=== PATIENT | female | born 1950 | race Caucasian/White ===

== ENCOUNTER 2019-10-09 08:02 | Emergency (ER) | payer MEDICARE, SELFPAY ==
[2019-10-09 07:56] VITALS: BMI 31.6
[2019-10-09 08:07] VITALS: BP 183/68; PULSE 84; RESP 22; TEMP 37; O2SAT 96
--- NOTE | 2019-10-09 08:10 | DI.RAD.S_ITS ---
PROCEDURE: XR CHEST 1V INDICATIONS: chest pain TECHNIQUE: One view of the chest was acquired. COMPARISON: [facility], CR, XR CHEST 1 VIEW, 12/15/2018, 11:28. FINDINGS: Surgical changes and devices: None. Lungs and pleura: Prominent interstitial markings are evident within the perihilar regions with associated prominent pulmonary vascular markings. No large effusion or definite pneumothorax is appreciated. There may be a rounded nodule within the right hilum, unchanged. Mediastinum: Mediastinal contours appear normal. The heart is enlarged. There is aortic atherosclerosis. Bones and chest wall: No suspicious bony lesions. Overlying soft tissues appear unremarkable. IMPRESSION: 1. Cardiomegaly with associated vascular congestion, suggesting pulmonary edema. 2. Rounded nodular structure within the right hilum may represent a vessel. However, CT of the chest is recommended with contrast to exclude a pulmonary nodule. Dictated by: Moe Sands M.D. on 10/09/2019 at 8:33 Approved by: Moe Sands M.D. on 10/09/2019 at 8:34
--- NOTE | 2019-10-09 08:13 | ED_ITS ---
HPI - Chest Pain General Chief Complaint: Chest Pain Stated Complaint: Chest pain Time Seen by Provider: 10/09/19 08:07 Source: patient and EMS Mode of arrival: EMS History of Present Illness HPI narrative: The patient is a 69-year-old female who developed chest pain this morning at 5:30 a.m.. She describes the chest discomfort as a pressure sitting on the center of her chest which did not radiate to her back neck jaw shoulder or arms. She was mildly sweaty and short of breath. She has had a chronic cough productive of a green sputum. She has had no pain on coughing. She states that she has been wheezing tremendously. She was transported from the methadone clinic. She states that in October she will be clear for 1 year of u sing IV heroin. At the present time she is not having any chest pain. When the chest pain occurred it was 5 to 7/10 in intensity. She denies a history of hepatitis, TB, HIV, pulmonary embolism, phlebitis, COPD, myocardial infarction, stroke, diabetes mellitus, pancreatitis. She has a history of congestive heart failure and hypertension. She states that she has not smoked cigarettes in 1974 and does not drink alcohol. The patient has a chronic right shoulder and upper chest pain for an old fracture for which she wears a sling in her right shoulder. She denies any recent fever chills or sweats she has a mild headache. She denies any nasal drainage sinus drainage. She has had intermittent palpitations and mild dizziness. She complains of diffuse muscle aches and backache. She has had no abdominal pain but has had diarrhea without melena hematochezia nausea or vomiting. She denies any urinary symptoms. Related Data Home Medications Medication Instructions Recorded Confirmed albuterol sulfate 1 inh INHALATION PRN PRN 10/09/19 10/09/19 budesonide-formoterol [Symbicort] 2 puff INHALATION BID 10/09/19 10/09/19 carvedilol 6.25 mg PO BID 10/09/19 10/09/19 ferrous sulfate 325 mg PO DAILY 10/09/19 10/09/19 furosemide 20 mg PO DAILY 10/09/19 10/09/19 gabapentin 600 mg PO TID 10/09/19 10/09/19 lisinopril 10/09/19 multivitamin 1 tab PO DAILY 10/09/19 10/09/19 naloxone [Narcan] INTRANASAL 10/09/19 oxycodone 5 - 10 mg PO Q4-6H PRN 10/09/19 10/09/19 pantoprazole 40 mg PO DAILY 10/09/19 10/09/19 sacubitril-valsartan [Entresto] 1 tab PO BID 10/09/19 10/09/19 Previous Rx's Medication Instructions Recorded ibuprofen 600 mg PO Q6H PRN #20 tab 10/09/19 nitroglycerin 0.3 mg SL Q5M PRN #20 tab 10/09/19 Allergies Allergy/AdvReac Type Severity Reaction Status Date / Time acetaminophen [From Vicodin] Allergy Hives Verified 10/09/19 08:03 hydrocodone [From Vicodin] Allergy Hives Verified 10/09/19 08:03 methocarbamol Allergy Hives Verified 10/09/19 08:07 olanzapine Allergy Hives Verified 10/09/19 08:07 propoxyphene Allergy Hives Verified 10/09/19 08:07 aspirin AdvReac Abdominal Verified 10/09/19 08:07 Pain ibuprofen AdvReac Verified 10/09/19 08:07 morphine AdvReac Palpitation Verified 10/09/19 08:07 s Review of Systems Review of Systems ROS Unobtainable: All systems reviewed & are unremarkable except as noted in HPI and below Patient History alcohol intake frequency: 0-2 drinks per day Substance Use Type: heroin Exam Narrative Exam Narrative: PHYSICAL EXAM: CONSTITUTIONAL: Awake, Alert, Oriented, Coherent, Cooperative in NAD. Does not appear toxic or ill. Walks slowly and speaks softly. She ambulated to the bathroom with assistance without difficulty. HEAD: AT/NC EENT: PERRL, FROM of eyes, no discharge, no nystagmus No epistaxis or nasal drainage Oral mucosa is moist and pink, posterior pharynx is without erythema or exu date. NECK: Supple, no obvious JVD, Trachea is midline without stridor, no palpable LN or masses. SPINE: No gross deformity, no palpable tenderness of the cervical, thoracic, lumbar or sacral spine. No CVA tenderness. Tender left SI joint. THORAX: No deformity, retractions. Chest wall tender along the left costosternal margin but does not mimic the chest pain she was complaining of., subcutaneous air or crepitice. LUNGS: Symmetrical decreased breath sounds bilaterally.s HEART: Normal heart tones, regular rhythm and rate without murmur. ABDOMEN: Soft, non-tender, normal bowel sounds without guarding, rebound, rigidity or palpable mass EXTREMITIES: No edema, cyanosis, deformity or tenderness. SKIN: No rash, bruising, petechiae or purpura. NEURO: Awake, alert, oriented, conversive, cranial nerves II-XII are symmetrical and normal, moves all 4 extremities and is ambulatory Initial Vital Signs Initial Vital Signs: Vital Signs Temperature 98.6 F 10/09/19 08:07 Pulse Rate 84 10/09/19 08:07 Respiratory Rate 22 10/09/19 08:07 Blood Pressure 183/68 H 10/09/19 08:07 Pulse Oximetry 96 10/09/19 08:07 Course Course Course Narrative: 11:07 CHEST X-RAY REVEALS THAT THE PATIENT HAS AN ILL-DEFINED density in the right hilum that may represent a vessel or a possible pulmonary n odule/tumor. Radiology recommends a CT scan with contrast. The patient's initial troponin is less than 0.012. Her urine drug screen is positive for methadone. No other drugs are present. A repeat 2 hour troponin will be ordered on the patient. A CT with contrast of the chest has been ordered. 1313: The patient's 2nd troponin remains pending. The patient's 2nd EKG reveals a normal sinus rhythm with a ventricular rate of 65. Intervals are normal axis is normal there are no acute diagnostic ST segment changes. The patient has a Q-wave/QS wave in V1. The EKG is nondiagnostic of an injury or coronary ischemia. The results of the patient's CT scan of the chest with contrast remains pending. [address] scan shows that the nodule in the right hilar was actually a blood vessel. There is cardiomegaly with increased vascular markings consistent with mild pulmonary edema. The patient has a prominent arm dilated common bile duct status post cholecystectomy. The patient's repeat troponin was less than 0.012. The patient will be discharged home to follow-up with her [facility] physician. Orders Ordered: Discontinued Medications Sodium Chloride (Normal Saline 0.9%) 1,000 mls @ 150 mls/hr IV CONT JOVITA Last Infusion: 10/09/19 14:02 Dose: 150 mls/hr Documented by: Admin: 10/09/19 08:42 Dose: 150 mls/hr Documented by: ALAN Vital Signs Vital signs: Vital Signs - 8 hr 10/09/19 08:07 10/09/19 11:39 10/09/19 12:42 Temperature 98.6 F Pulse Rate 84 84 43 L Respiratory Rate 22 25 H 16 Blood Pressure [Right Arm] 183/68 H 168/56 H 141/68 H Pulse Oximetry 96 96 100 MDM - Chest Pain Lab Data Result diagrams: 10/09/19 07:35 10/09/19 07:35 Labs: Lab Results 10/09/19 10/09/19 10/09/19 Range/Units 07:35 07:35 08:20 WBC 7.8 (4.5-11.0) X10^3/uL RBC 3.68 L (4.0-5.2) X10^6/uL Hgb 10.2 L (12.0-16.0) g/dL Hct 31.0 L (36-46) % MCV 84.3 (80-100) fL MCH 27.7 (26-34) PG MCHC 32.9 (30-36) % RDW 15.1 H (11.6-14.8) % Plt Count 328 (150-400) X10^3/uL Neut % (Auto) 76.7 H (50-75) % Lymph % (Auto) 14.1 L (25-40) % [place] % (Auto) 5.4 (3-14) % Eos % (Auto) 3.4 (2-4) % Baso % (Auto) 0.4 (0-2) % Neut # (Auto) 6000 (8106-0118) /uL Lymph # (Auto) 1100 (4891-2638) /uL [place] # (Auto) 400 (0-900) /uL Eos # (Auto) 300 (0-450) /uL Baso # (Auto) 0 (0-100) /uL Sodium 141 (137-145) mmol/L Potassium 4.0 (3.4-5.1) mmol/L Chloride 107 (98-107) mmol/L Carbon Dioxide 27 (22-32) mmol/L BUN 11 (7-17) mg/dL Creatinine 0.80 (0.52-1.04) mg/dL Estimated GFR > 60.0 (>60) mL/min BUN/Creatinine Ratio 13.8 (6-22) Glucose 86 (80-110) mg/dL Calcium 8.8 (8.4-10.2) mg/dL Total Bilirubin 0.5 (0.2-1.3) mg/dL AST 25 (14-36) IU/L ALT 11 (<35) IU/L Alkaline Phosphatase 128 H (38-126) U/L Total Creatine Kinase 59 (30-135) U/L CK-MB (CK-2) TNP CK-MB (CK-2) Rel Index TNP Troponin I < 0.012 (0.01-0.034) ng/mL Total Protein 8.3 H (6.3-8.2) g/dL Albumin 4.0 (3.5-5.0) g/dL Globulin 4.3 H (1.7-4.1) g/dL Albumin/Globulin Ratio 0.9 L (1.0-2.8) Lipase 53 (23-300) U/L Urine Color Yellow Urine Appearance Clear Urine pH 7.0 (4.5-8.0) Ur Specific [place] 1.010 (1.000-1.035) Urine Protein Negative (Negative) Urine Glucose (UA) Negative (Negative) g/dL Urine Ketones Negative (NEGATIVE) Urine Occult Blood Trace-lysed (Negative) Urine Nitrate Negative (Negative) Urine Bilirubin Negative (NEGATIVE) Urine Urobilinogen 0.2 (0.2) E.U./dL Ur Leukocyte Esterase Negative (NEGATIVE) Urine RBC 0-1/hpf (0-5/HPF) Urine WBC 1-5/hpf (0-5/HPF) Ur Squamous Epith Cells 0-1 /hpf (0-5/HPF) Urine Bacteria Few (2-10) H (None) Ur Culture Indicated? Cult not indicated U Opiates 300ng/mL cut (Negative) Ur Oxycodone Screen (Negative) Urine Methadone Screen (Negative) Ur Barbiturates Screen (Negative) U Tricyclic Antidepress (Negative) Ur Phencyclidine Scrn (Negative) Ur Amphetamines Screen (Negative) U Methamphetamines Scrn (Negative) Ur MDMA Scrn (Ecstasy) (Negative) U Benzodiazepines Scrn (Negative) Urine Cocaine Screen (Negative) U Marijuana (THC) Screen (Negative) 10/09/19 10/09/19 Range/Units 08:20 12:48 WBC (4.5-11.0) X10^3/uL RBC (4.0-5.2) X10^6/uL Hgb (12.0-16.0) g/dL Hct (36-46) % MCV (80-100) fL MCH (26-34) PG MCHC (30-36) % RDW (11.6-14.8) % Plt Count (150-400) X10^3/uL Neut % (Auto) (50-75) % Lymph % (Auto) (25-40) % [place] % (Auto) (3-14) % Eos % (Auto) (2-4) % Baso % (Auto) (0-2) % Neut # (Auto) (6741-8377) /uL Lymph # (Auto) (4516-9488) /uL [place] # (Auto) (0-900) /uL Eos # (Auto) (0-450) /uL Baso # (Auto) (0-100) /uL Sodium (137-145) mmol/L Potassium (3.4-5.1) mmol/L Chloride (98-107) mmol/L Carbon Dioxide (22-32) mmol/L BUN (7-17) mg/dL Creatinine (0.52-1.04) mg/dL Estimated GFR (>60) mL/min BUN/Creatinine Ratio (6-22) Glucose (80-110) mg/dL Calcium (8.4-10.2) mg/dL Total Bilirubin (0.2-1.3) mg/dL AST (14-36) IU/L ALT (<35) IU/L Alkaline Phosphatase (38-126) U/L Total Creatine Kinase (30-135) U/L CK-MB (CK-2) CK-MB (CK-2) Rel Index Troponin I < 0.012 (0.01-0.034) ng/mL Total Protein (6.3-8.2) g/dL Albumin (3.5-5.0) g/dL Globulin (1.7-4.1) g/dL Albumin/Globulin Ratio (1.0-2.8) Lipase (23-300) U/L Urine Color Urine Appearance Urine pH (4.5-8.0) Ur Specific [place] (1.000-1.035) Urine Protein (Negative) Urine Glucose (UA) (Negative) g/dL Urine Ketones (NEGATIVE) Urine Occult Blood (Negative) Urine Nitrate (Negative) Urine Bilirubin (NEGATIVE) Urine Urobilinogen (0.2) E.U./dL Ur Leukocyte Esterase (NEGATIVE) Urine RBC (0-5/HPF) Urine WBC (0-5/HPF) Ur Squamous Epith Cells (0-5/HPF) Urine Bacteria (None) Ur Culture Indicated? U Opiates 300ng/mL cut Negative (Negative) Ur Oxycodone Screen Negative (Negative) Urine Methadone Screen Positive H (Negative) Ur Barbiturates Screen Negative (Negative) U Tricyclic Antidepress Negative (Negative) Ur Phencyclidine Scrn Negative (Negative) Ur Amphetamines Screen Negative (Negative) U Methamphetamines Scrn Negative (Negative) Ur MDMA Scrn (Ecstasy) Negative (Negative) U Benzodiazepines Scrn Negative (Negative) Urine Cocaine Screen Negative (Negative) U Marijuana (THC) Screen Negative (Negative) ABG Data Attestation: I personally reviewed and interpreted this ABG as follows: Interpretation: The patient's EKG obtained on October 09 at 1007:5 6:21 a.m. reveals a sinus rhythm without any acute diagnostic ST segment changes. Intervals are normal with a QRS being 92 milliseconds QTC 431 milliseconds. Cross is normal there are no acute diagnostic ST segment changes no T-wave inversions nor Q-waves appreciated. Discharge Plan Departure Patient Disposition: Home Clinical Impression: Atypical chest pain Opiate dependence Qualifiers: Substance use status: uncomplicated Qualified Code(s): F11.20 - Opioid dependence, uncomplicated Discharge Date/Time: 10/09/19 14:10 Instructions: DI for Acute Coronary Syndrome, DI for Angina, DI for Atypical Chest Pain, DI for Chest Pain Activity Restrictions/Additional Instructions: Your CT scan revealed no acute cardiopulmonary pathology other than some mild vascular markings. You have an enlarged heart. There is no nodule or tumor noted in your lungs. For the pain and discomfort you can use ibuprofen 600 mg every 6 hours and for tight squeezing pressure you can use nitroglycerin tablets and repeated and 5 minutes. If your pain and discomfort does not resolve within 3 doses of nitroglycerin you should be re-evaluated. At that time you need to proceed to the nearest emergency department. Prescriptions: New ibuprofen 600 mg tablet 600 mg PO Q6H PRN (Reason: pain) Qty: 20 RF: 0 nitroglycerin 0.3 mg tablet, sublingual 0.3 mg SL Q5M PRN (Reason: chest pain) Qty: 20 RF: 1 No Action multivitamin Tablet 1 tab PO DAILY RF: 0 carvedilol 6.25 mg tablet 6.25 mg PO BID RF: 0 gabapentin 600 mg tablet 600 mg PO TID RF: 0 pantoprazole 40 mg Tablet,Delayed Release (Dr/Ec) 40 mg PO DAILY RF: 0 ferrous sulfate 325 mg (65 mg iron) Tablet 325 mg PO DAILY RF: 0 lisinopril 5 mg Tablet RF: 0 furosemide 20 mg tablet 20 mg PO DAILY RF: 0 albuterol sulfate 90 mcg/actuation Hfa Aerosol Inhaler 1 inh INHALATION PRN PRN (Reason: Shortness Of Breath) RF: 0 oxycodone 5 mg tablet 5 - 10 mg PO Q4-6H PRN (Reason: pain) RF: 0 Symbicort 80-4.5 mcg/actuation HFA aerosol inhaler 2 puff INHALATION BID RF: 0 Entresto 49-51 mg tablet 1 tab PO BID RF: 0 Narcan 4 mg/actuation spray,non-aerosol INTRANASAL RF: 0
[2019-10-09 08:18] LABS: Add Manual Diff / Slide Review NO; Basophils Absolute Auto 0 /uL (0-100); Basophils Percent Auto 0.4 % (0-2); Eosinophils Absolute Auto 300 /uL (0-450); Eosinophils Percent Auto 3.4 % (2-4); Hemoglobin 10.2 g/dL (12.0-16.0); Lymphocytes Absolute Auto 1100 /uL (1100-4500); Lymphocytes Percent Auto 14.1 % (25-40); Mean Corpuscular HGB Conc 32.9 % (30-36); Mean Corpuscular Hemoglobin 27.7 PG (26-34); Mean Corpuscular Volume 84.3 fL (80-100); Monocytes Absolute Auto 400 /uL (0-900); Monocytes Percent Auto 5.4 % (3-14); Neutrophils Absolute Auto 6000 /uL (1500-7000); Neutrophils Percent Auto 76.7 % (50-75); Platelet Count 328 X10^3/uL (150-400); Red Blood Cell Count 3.68 X10^6/uL (4.0-5.2); Red Cell Distribution Width 15.1 % (11.6-14.8); White Blood Cell Count 7.8 X10^3/uL (4.5-11.0)
[2019-10-09 08:25] LABS: Alanine Aminotransferase 11 IU/L (<35); Albumin Globulin Ratio 0.9 (1.0-2.8); Alkaline Phosphatase 128 U/L (38-126); Aspartate Aminotransferase 25 IU/L (14-36); BUN Creatinine Ratio 13.8 (6-22); Bilirubin Total 0.5 mg/dL (0.2-1.3); Blood Urea Nitrogen 11 mg/dL (7-17); Calcium 8.8 mg/dL (8.4-10.2); Carbon Dioxide 27 mmol/L (22-32); Chloride 107 mmol/L (98-107); Creatine Kinase 59 U/L (30-135); Estimated Glomerular Filt Rate > 60.0 mL/min (>60); Globulin 4.3 g/dL (1.7-4.1); Glucose 86 mg/dL (80-110); HEMOLYSIS 25 (0-50); Lipase 53 U/L (23-300); Sodium 141 mmol/L (137-145); Total Protein 8.3 g/dL (6.3-8.2)
[2019-10-09 08:28] LABS: Appearance Urine UA CLEAR; Bilirubin Urine UA NEGATIVE (NEGATIVE); Color Urine UA YELLOW; Glucose Urine UA NEGATIVE (Negative); Ketones Urine UA NEGATIVE (NEGATIVE); Leukocyte Esterase Urine UA NEGATIVE (NEGATIVE); Nitrite Urine UA NEGATIVE (Negative); Occult Blood Urine UA TRACE-LYSED (Negative); Protein Urine UA NEGATIVE (Negative); Urobilinogen Urine UA 0.2 E.U./dL (0.2)
--- NOTE | 2019-10-09 08:34 | PC.NURSE ---
patient told the clinic that she was having chest pain, they did an ekg and gave 1 nitro, pain from a 9/10 to 2/10, on arrival 0/10.
[2019-10-09 08:37] LABS: UR Morphine/Opiate cutoff 300 Negative (Negative); Ur Creatinine Normal (Normal); Ur Specific Gravity Normal (Normal); Urine Amphetamines Negative (Negative); Urine Barbiturates Negative (Negative); Urine Benzodiazepines Negative (Negative); Urine Cocaine Negative (Negative); Urine MDMA Negative (Negative); Urine Methadone Positive (Negative); Urine Methamphetamines Negative (Negative); Urine Oxycodone Negative (Negative); Urine Phencyclidine Negative (Negative); Urine Tetrahydrocannabinol Negative (Negative); Urine Tricyclic Antidepressant Negative (Negative); Urine pH Normal (Normal)
[2019-10-09 08:37] LABS: Troponin I < 0.012 ng/mL (0.01-0.034)
[2019-10-09 08:38] LABS: Bacteria Urine Few (2-10); Culture Indicated Urine Cult Not Indicated; RBC Urine 0-1/HPF (0-5/HPF); Squamous Epithelial Cell Urine 0-1 /HPF (0-5/HPF); WBC Urine 1-5/HPF (0-5/HPF)
[2019-10-09] MEDS: SODIUM CHLORIDE 0.9% 1,000 ML 150 ML IV (08:42)
--- NOTE | 2019-10-09 11:05 | DI.CT.S_ITS ---
PROCEDURE: CT CHEST W CON INDICATIONS: CHEST PAIN, RIGHT SUHAIL MASS R/O NODULE/TUMOR TECHNIQUE: After the administration of intravenous contrast, 5 mm thick sections acquired from the pulmonary apices to the posterior costophrenic angles. 1 mm axial lung, 5 mm thick coronal and sagittal reformats and 7 mm axial MIP were acquired. For radiation dose reduction, the following was used: automated exposure control, adjustment of mA and/or kV according to patient size. COMPARISON: [facility], CR, XR CHEST 1V, 10/09/2019, 8:19. FINDINGS: Image quality: Diagnostic. Lungs and pleura: No lung mass or definite pulmonary nodule is appreciated. The abnormality on the recent chest radiograph is felt to represent a vessel on end within the right hilum that is extending from the hilum to the anterior aspect of the right upper lobe. There is scarring within the lung apices. Mild bronchial wall thickening is noted within the perihilar region on the right, particularly within the right upper lobe. Patchy areas of groundglass attenuation are identified. There is no effusion or pneumothorax. Mediastinum: Heart size is mildly enlarged. No pericardial effusion. Coronary artery atherosclerosis is present. No mediastinal or hilar adenopathy by size criteria. Thoracic aorta and central pulmonary arteries are normal in size. There is aortic atherosclerosis. There is a small hiatal hernia. The esophagus is otherwise unremarkable. Bones and chest wall: No suspicious bony lesions there is a chronic appearing proximal left humerus fracture with associated impaction and early periosteal reaction. No acute compression deformities of the thoracic spine are present. Age-appropriate degenerative changes of the thoracic spine are noted. No axillary or supraclavicular adenopathy by size criteria. Thyroid gland is not enlarged or adequately evaluated. Abdomen: Included portions of the upper abdomen demonstrates cholecystectomy changes with prominent enlargement of the common bile duct that measures up to approximately 1.5 cm in diameter. The kidneys appear to be somewhat atrophic, but are not well characterized. IMPRESSION: 1. Nodular structure within the right hilar region correlates with a vessel. No masses or definite pulmonary nodules are appreciated. 2. Cardiomegaly with findings that are suggestive of mild pulmonary edema. 3. Bronchial wall thickening within the right upper lobe may be related to chronic interstitial changes. Please correct clinically to exclude bronchitis. 4. Coronary and aortic atherosclerosis. 5. Subacute proximal left humerus fracture. 6. Enlarged common bile duct may be within normal limits for this patient who has had a prior cholecystectomy. If the liver function tests are elevated or increasing, please consider MRCP for further evaluation. Dictated by: Moe Sands M.D. on 10/09/2019 at 12:17 Approved by: Moe Sands M.D. on 10/09/2019 at 12:21
[2019-10-09 11:39] VITALS: BP 168/56; PULSE 84; RESP 25; O2SAT 96
[2019-10-09 12:42] VITALS: BP 141/68; PULSE 43; RESP 16; O2SAT 100
[2019-10-09 13:22] LABS: Troponin I < 0.012 ng/mL (0.01-0.034)
[2019-10-09 14:03] VITALS: BP 178/64
--- NOTE | 2019-10-09 19:27 | PC.NURSE ---
Pt is currently being seen at [facility] ED in [place]. Providers from [facility] requested records from pts ED visit here for continuity of care.
== END 2019-10-09 14:10 | disposition home or self-care (01) ==
PROVIDERS: Emergency Provider Emergency Medicine
DX: R07.89 Other chest pain (principal); F11.20 Opioid dependence, uncomplicated
CPT/HCPCS: 36415; 71045; 71260; 80053; 80305; 81001; 82550; 83690; 84484; 85025; 93005; 96360; 96361; 99284; 99285; Q9967